=== PATIENT | female | born 1960 | race Hispanic/Latino ===

== ENCOUNTER 2021-07-21 23:08 | Observation (INO) | payer BC ==
[~2021-07-21] VITALS: Ht 152.4 cm; Wt 49.0 kg
[~2021-07-21 23:08] MED LIST: CYAN10007 IM; FAMO20TA8 PO; LEVO500T90 PO; ONDA-105 PO; SUCR1TAB PO
[2021-07-21 23:48] LABS: APPEARANCE,URINE Clear (CLEAR); BILIRUBIN,URINE Negative (NEGATIVE); COLOR,URINE Yellow (YELLOW); GLUCOSE, URINE (UA) Negative (NEGATIVE); KETONES,URINE Negative (NEGATIVE); LEUKOCYTE ESTERASE ,URINE Negative (NEGATIVE); NITRATE,URINE Negative (NEGATIVE); OCCULT BLOOD,URINE Negative (NEGATIVE); PROTEIN,URINE Negative (NEGATIVE); UROBILINOGEN,URINE 0.2 mg/dL (0.2-1.0)
[2021-07-21 23:49] LABS: BASOPHILS % (AUTO) 0.3 % (0.0-5.0); EOSINOPHILS % (AUTO) 0.7 % (0.0-8.0); HEMATOCRIT 36.7 % (36-48); LYMPHOCYTES % (AUTO) 6.4 % (21.0-51.0); MEAN CORPUSCULAR HEMOGLOBIN 32.5 pg (27.0-33.0); MEAN CORPUSCULAR HGB CONC 34.1 g/dL (32.0-36.0); MEAN CORPUSCULAR VOLUME 95.3 fL (79-99); MONOCYTES % (AUTO) 5.1 % (3.0-13.0); NEUTROPHILS % (AUTO) 87.2 % (40.0-77.0); PLATELET COUNT (AUTO) 144 K/uL (130-400); RED BLOOD CELL COUNT(AUTO) 3.85 MIL/uL (4.00-5.50); RED CELL DISTRIBUTION WIDTH 12.2 % (11.0-15.5); WHITE BLOOD COUNT (AUTO) 9.1 K/uL (4.8-10.8)
[2021-07-22 00:15] LABS: ALBUMIN 3.4 g/dL (3.5-5.0); BILIRUBIN,TOTAL 0.8 mg/dL (0.2-1.0); CREATININE 0.6 mg/dL (0.5-1.5); POTASSIUM 3.9 mmol/L (3.5-5.1); TOTAL PROTEIN, SERUM 7.3 g/dL (6.0-8.3)
[2021-07-22] MEDS ORDERED: PANTOPRAZOLE 40 MG/VIAL IVP ONE (00:30)
[2021-07-22] MEDS ORDERED: 0.9%NACL 1000ML 1,000 ML IV ONE (00:30)
[2021-07-22] MEDS ORDERED: ONDANSETRON 4MG INJ IVP ONE (00:30)
[2021-07-22] MEDS ORDERED: FAMOTIDINE 20MG VIAL IV ONE (00:30)
[2021-07-22] MEDS ORDERED: ONDANSETRON 4MG INJ IV PRN (02:30)
[2021-07-22] MEDS ORDERED: MORPHINE 4 MG SYG IV PRN (02:30)
[2021-07-22] MEDS: 0.9%NACL 1000ML 1,000 ML IV SCH ×2 (03:34→14:10)
[2021-07-22 03:42] VITALS: BP 138/77
[2021-07-22 03:49] LABS: INR 1.08 (0.85-1.15); PROTHROMBIN TIME 11.7 SEC (9.6-11.6)
[2021-07-22] MEDS ORDERED: folic acid PO (04:03)
[2021-07-22] MEDS ORDERED: iron PO (04:03)
[2021-07-22] MEDS ORDERED: pepto bismol PO (04:03)
[2021-07-22 07:31] VITALS: BP 120/74
[2021-07-22] MEDS: FAMOTIDINE 20MG VIAL IV SCH ×2 (08:36→20:38)
[2021-07-22] MEDS ORDERED: FAMOTIDINE 20MG VIAL IV SCH (09:00)
[2021-07-22 11:19] VITALS: BP 117/72
[2021-07-22 16:20] VITALS: BP 126/68
[2021-07-22] MEDS ORDERED: POLYETHYLENE GLYCOL 3350 17 GM POWD.PACK PO ONE (16:30)
[2021-07-22 18:35] VITALS: BP 113/73
[2021-07-22 23:37] VITALS: BP 129/77
[2021-07-23] MEDS: 0.9%NACL 1000ML 1,000 ML IV SCH (01:47)
[2021-07-23 03:25] VITALS: BP 104/68
[2021-07-23 08:00] VITALS: BP 130/86
[2021-07-23] MEDS: FAMOTIDINE 20MG VIAL IV SCH (08:25)
[2021-07-23] MEDS ORDERED: POLYETHYLENE GLYCOL 3350 17 GM POWD.PACK PO SCH (09:00)
[2021-07-23] MEDS ORDERED: POLY17PO4 PO (10:09)
[2021-07-23 11:36] VITALS: BP 135/77
[2021-07-23] MEDS ORDERED: HEPARIN 5,000 UNIT VIAL ONE (12:01)
[2021-07-23] MEDS ORDERED: HEPARIN 5,000 UNIT VIAL SQ SCH (12:30)
== END 2021-07-23 13:00 | disposition home or self-care (01) ==
LOC: EDH 23:08 → UNDOADMOB 07-22 02:01 → EDHIP 07-22 02:01 → WSH 07-22 03:35
PROVIDERS: ADMIT Internal Medicine Pulmonary Disease; ATTEND Internal Medicine Pulmonary Disease
DX: K56.609 Unspecified intestinal obstruction, unspecified as to partial versus complete obstruction (principal); Z20.822 Contact with and (suspected) exposure to COVID-19; C16.9 Malignant neoplasm of stomach, unspecified; D64.9 Anemia, unspecified; E86.9 Volume depletion, unspecified; Z85.028 Personal history of other malignant neoplasm of stomach; Z90.3 Acquired absence of stomach [part of]; Z92.21 Personal history of antineoplastic chemotherapy; Z90.49 Acquired absence of other specified parts of digestive tract; Z79.899 Other long term (current) drug therapy; Z98.890 Other specified postprocedural states
CPT/HCPCS: 36415 ×2; 74176; 80053; 81003; 83690; 84484; 85025; 85610; 85730; 86850; 86900; 86901; 87635; 87804 ×2; 96361 ×2; 96374; 96375; 96376 ×2; 99284; C9113; C9803; G0378 ×35; J1644 ×2; J2405; J3490 ×4; J7030; L0625

== ENCOUNTER 2021-12-18 23:09 | Observation (INO) | payer BC ==
[~2021-12-18] VITALS: Ht 152.4 cm; Wt 49.5 kg
[~2021-12-18 23:09] MED LIST changes: +BISM262O28 PO; -FAMO20TA8 PO; -LEVO500T90 PO; -ONDA-105 PO; +PANT40I PO; +POLY17PO4 PO; -SUCR1TAB PO; +folic acid PO; +iron PO
[2021-12-18] MEDS ORDERED: ONDANSETRON 4MG INJ IVP ONE (23:30)
[2021-12-18 23:51] LABS: BASOPHILS % (AUTO) 0.3 % (0.0-5.0); EOSINOPHILS % (AUTO) 0.5 % (0.0-8.0); HEMATOCRIT 38.6 % (36-48); LYMPHOCYTES % (AUTO) 9.6 % (21.0-51.0); MEAN CORPUSCULAR HEMOGLOBIN 32.1 pg (27.0-33.0); MEAN CORPUSCULAR HGB CONC 33.2 g/dL (32.0-36.0); MEAN CORPUSCULAR VOLUME 96.7 fL (79-99); MONOCYTES % (AUTO) 6.2 % (3.0-13.0); NEUTROPHILS % (AUTO) 83.2 % (40.0-77.0); PLATELET COUNT (AUTO) 146 K/uL (130-400); RED BLOOD CELL COUNT(AUTO) 3.99 MIL/uL (4.00-5.50); RED CELL DISTRIBUTION WIDTH 12.6 % (11.0-15.5); WHITE BLOOD COUNT (AUTO) 8.7 K/uL (4.8-10.8)
[2021-12-18 23:54] LABS: APPEARANCE,URINE CLEAR (CLEAR); BILIRUBIN,URINE NEGATIVE (NEGATIVE); COLOR,URINE YELLOW (YELLOW); GLUCOSE, URINE (UA) NEGATIVE (NEGATIVE); KETONES,URINE 5 mg/dL (NEGATIVE); LEUKOCYTE ESTERASE ,URINE SMALL (NEGATIVE); NITRATE,URINE NEGATIVE (NEGATIVE); OCCULT BLOOD,URINE NEGATIVE (NEGATIVE); PROTEIN,URINE NEGATIVE (NEGATIVE); UROBILINOGEN,URINE 0.2 mg/dL (0.2-1.0)
[2021-12-19 00:02] LABS: CARBON DIOXIDE 25 mmol/L (21-32); CHLORIDE 105 mmol/L (101-111); CREATININE 0.8 mg/dL (0.5-1.5); GLOMERULAR FILTR. RATE CALC 77 mL/min (>60); GLUCOSE,RANDOM 135 mg/dL (70-105); SODIUM SERUM 140 mmol/L (136-145); UREA NITROGEN, BLOOD 22 mg/dL (7-18)
[2021-12-19 00:10] LABS: BACTERIA,URINE None Seen /HPF (None Seen); MUCUS,URINE Few LPF (None Seen); RBC,URINE 0-1 /HPF (0-1); SQUAMOUS EPITHELIAL CELL,UR Few /HPF (0-2)
[2021-12-19 00:12] LABS: ALANINE AMINOTRANSFERASE 25 U/L (12-78); ASPARTATE AMINOTRANSFERASE 25 U/L (10-37); TOTAL PROTEIN, SERUM 8.1 g/dL (6.0-8.3)
[2021-12-19 00:14] LABS: LIPASE < 50 U/L (114-286)
[2021-12-19] MEDS ORDERED: KETOROLAC 15MG/ML VIAL (15MG/ML) IV ONE (00:30)
[2021-12-19] MEDS ORDERED: ONDANSETRON 4MG INJ IVP ONE (00:30)
[2021-12-19] MEDS ORDERED: MORPHINE 4 MG SYG IVP ONE (00:30)
[2021-12-19] MEDS ORDERED: IOHEXOL 350 MG/ML 100ML INFUS..BTL IV ONE (00:34)
[2021-12-19] MEDS ORDERED: 0.9% NACL 500ML IV.SOLN 500 ML IV ONE (01:30)
[2021-12-19] MEDS ORDERED: MORPHINE 2 MG SYG IVP PRN (01:30)
[2021-12-19] MEDS: 0.9%NACL 1000ML 1,000 ML IV SCH ×3 (01:45→17:37)
[2021-12-19] MEDS: INSULIN HUMULIN R 100 UNIT/ML 3ML SQ SCH ×4 (06:00→23:39)
[2021-12-19 08:00] VITALS: BP 117/71
[2021-12-19] MEDS: FERROUS SULFATE 325 MG TABLET.DR PO SCH (09:00)
[2021-12-19] MEDS ORDERED: CYANOCOBALAMIN (VITAMIN B-12) 1000 MCG/ML 1ML VIAL IM SCH (09:00)
[2021-12-19] MEDS: POLYETHYLENE GLYCOL 3350 17 GM POWD.PACK PO SCH (09:00)
[2021-12-19] MEDS: CEFTRIAXONE 2GM VIAL IVP SCH (10:16)
[2021-12-19] MEDS: ENOXAPARIN SODIUM 30 MG/0.3 ML SQ SCH (10:18)
[2021-12-19] MEDS: PANTOPRAZOLE 40 MG/VIAL IV SCH (10:18)
[2021-12-19 12:00] VITALS: BP 119/73
[2021-12-19 16:00] VITALS: BP 124/72
[2021-12-19 20:34] VITALS: BP 121/73
[2021-12-19] MEDS: LACTATED RINGERS 1000ML 1,000 ML IV SCH (22:43)
[2021-12-20] MEDS ORDERED: DEXTROSE 50%-WATER 50 ML DISP.SYRIN IV PRN
[2021-12-20 00:33] VITALS: BP 118/70
[2021-12-20] MEDS ORDERED: DEXTROSE 5 % AND 0.9 % NACL 1,000 ML IV SCH (01:00)
[2021-12-20] MEDS ORDERED: GLUCAGON 1MG KIT 1 MG ML IM PRN ×2 (01:00)
[2021-12-20 04:08] VITALS: BP 145/78
[2021-12-20] MEDS: INSULIN HUMULIN R 100 UNIT/ML 3ML SQ SCH ×3 (05:28→17:59)
[2021-12-20 05:30] LABS: BASOPHILS % (AUTO) 0.4 % (0.0-5.0); EOSINOPHILS % (AUTO) 4.9 % (0.0-8.0); HEMATOCRIT 27.7 % (36-48); LYMPHOCYTES % (AUTO) 20.8 % (21.0-51.0); MEAN CORPUSCULAR HEMOGLOBIN 32.1 pg (27.0-33.0); MEAN CORPUSCULAR HGB CONC 33.6 g/dL (32.0-36.0); MEAN CORPUSCULAR VOLUME 95.5 fL (79-99); MONOCYTES % (AUTO) 10.6 % (3.0-13.0); NEUTROPHILS % (AUTO) 63.3 % (40.0-77.0); PLATELET COUNT (AUTO) 103 K/uL (130-400); RED CELL DISTRIBUTION WIDTH 12.3 % (11.0-15.5); WHITE BLOOD COUNT (AUTO) 2.3 K/uL (4.8-10.8)
[2021-12-20 05:47] LABS: ALBUMIN 2.5 g/dL (3.5-5.0); CREATININE 0.6 mg/dL (0.5-1.5); MAGNESIUM 1.6 mg/dL (1.80-2.40); PHOSPHORUS 3.9 mg/dL (2.5-4.9); POTASSIUM 3.3 mmol/L (3.5-5.1); TOTAL PROTEIN, SERUM 5.4 g/dL (6.0-8.3)
[2021-12-20 05:50] LABS: EOSINOPHILS % (MANUAL) 4 % (1-6); LYMPHOCYTES % (MANUAL) 28 % (22-44); MAN.DIFF COMMENT-IMPRESSION MANUAL DIFFERENTIAL; MONOCYTES % (MANUAL) 8 % (2-9); PLATELET MORPHOLOGY COMMENT ADEQUATE; SEGMENTED NEUTROPHILS % 60 % (40-70)
[2021-12-20 07:34] VITALS: BP 131/67
[2021-12-20] MEDS: CEFTRIAXONE 2GM VIAL IVP SCH (10:02)
[2021-12-20] MEDS: FERROUS SULFATE 325 MG TABLET.DR PO SCH (10:02)
[2021-12-20] MEDS: POLYETHYLENE GLYCOL 3350 17 GM POWD.PACK PO SCH (10:03)
[2021-12-20] MEDS: ENOXAPARIN SODIUM 30 MG/0.3 ML SQ SCH (10:03)
[2021-12-20] MEDS: PANTOPRAZOLE 40 MG/VIAL IV SCH ×2 (10:03→15:29)
[2021-12-20] MEDS: LACTATED RINGERS 1000ML 1,000 ML IV SCH (10:05)
[2021-12-20 12:37] VITALS: BP 157/84
[2021-12-20] MEDS ORDERED: POTASSIUM CHLORIDE 20MEQ/100ML 100 ML IV PRN (13:30)
[2021-12-20] MEDS ORDERED: LIDOCAINE HCL-MPF 1% 2ML VIAL IV PRN (13:30)
[2021-12-20] MEDS ORDERED: MAGNESIUM 2GM PREMIX 50ML 50 ML IV PRN (13:30)
[2021-12-20] MEDS ORDERED: POTASSIUM CHLORIDE 10% ELIXIR 20 MEQ/15 ML UDCUP PO PRN (13:30)
[2021-12-20] MEDS: KCL 20 MEQ ERTAB PO PRN ×2 (15:33→18:05)
[2021-12-20 15:59] VITALS: BP 142/77
[2021-12-20] MEDS: METOCLOPRAMIDE 10 MG TABLET PO SCH (16:38)
[2021-12-20 20:00] VITALS: BP 145/77
[2021-12-21] VITALS: BP 120/72
[2021-12-21] MEDS: LACTATED RINGERS 1000ML 1,000 ML IV SCH (01:16)
[2021-12-21 04:00] VITALS: BP 122/73
[2021-12-21 05:21] LABS: BASOPHILS % (AUTO) 0.4 % (0.0-5.0); EOSINOPHILS % (AUTO) 3.5 % (0.0-8.0); HEMATOCRIT 28.9 % (36-48); LYMPHOCYTES % (AUTO) 22.8 % (21.0-51.0); MEAN CORPUSCULAR HEMOGLOBIN 32.7 pg (27.0-33.0); MEAN CORPUSCULAR HGB CONC 34.9 g/dL (32.0-36.0); MEAN CORPUSCULAR VOLUME 93.5 fL (79-99); MONOCYTES % (AUTO) 13.1 % (3.0-13.0); NEUTROPHILS % (AUTO) 59.8 % (40.0-77.0); PLATELET COUNT (AUTO) 128 K/uL (130-400); RED BLOOD CELL COUNT(AUTO) 3.09 MIL/uL (4.00-5.50); RED CELL DISTRIBUTION WIDTH 12.5 % (11.0-15.5); WHITE BLOOD COUNT (AUTO) 2.6 K/uL (4.8-10.8)
[2021-12-21 05:42] LABS: ALBUMIN 2.7 g/dL (3.5-5.0); CREATININE 0.6 mg/dL (0.5-1.5); POTASSIUM 4.3 mmol/L (3.5-5.1)
[2021-12-21] MEDS: INSULIN HUMULIN R 100 UNIT/ML 3ML SQ SCH ×2 (06:00)
[2021-12-21 06:18] LABS: EOSINOPHILS % (MANUAL) 2 % (1-6); LYMPHOCYTES % (MANUAL) 15 % (22-44); MONOCYTES % (MANUAL) 12 % (2-9); SEGMENTED NEUTROPHILS % 71 % (40-70)
[2021-12-21 06:19] LABS: MAN.DIFF COMMENT-IMPRESSION MANUAL DIF; PLATELET MORPHOLOGY COMMENT SLIGHTLY DECREASED
[2021-12-21] MEDS: METOCLOPRAMIDE 10 MG TABLET PO SCH ×2 (06:28→11:12)
[2021-12-21 08:00] VITALS: BP 134/77
[2021-12-21] MEDS: PANTOPRAZOLE 40 MG/VIAL IV SCH (09:13)
[2021-12-21] MEDS: CEFTRIAXONE 2GM VIAL IVP SCH (09:13)
[2021-12-21] MEDS: POLYETHYLENE GLYCOL 3350 17 GM POWD.PACK PO SCH (09:13)
[2021-12-21] MEDS: ENOXAPARIN SODIUM 30 MG/0.3 ML SQ SCH (09:13)
[2021-12-21] MEDS: FERROUS SULFATE 325 MG TABLET.DR PO SCH (09:13)
== END 2021-12-21 16:25 | disposition home or self-care (01) ==
LOC: EDH 23:09 → EDHIP 12-19 01:27 → 3BH 12-19 08:27
PROVIDERS: ADMIT Internal Medicine Pulmonary Disease; ATTEND Internal Medicine Pulmonary Disease
DX: K56.609 Unspecified intestinal obstruction, unspecified as to partial versus complete obstruction (principal); E11.65 Type 2 diabetes mellitus with hyperglycemia; E87.8 Other disorders of electrolyte and fluid balance, not elsewhere classified; Z85.028 Personal history of other malignant neoplasm of stomach; D64.9 Anemia, unspecified; E86.0 Dehydration; E86.9 Volume depletion, unspecified; D70.9 Neutropenia, unspecified; K44.9 Diaphragmatic hernia without obstruction or gangrene; M47.815 Spondylosis without myelopathy or radiculopathy, thoracolumbar region; Z53.20 Procedure and treatment not carried out because of patient's decision for unspecified reasons; Z85.01 Personal history of malignant neoplasm of esophagus; Z90.3 Acquired absence of stomach [part of]; Z92.21 Personal history of antineoplastic chemotherapy; Z92.3 Personal history of irradiation; Z79.899 Other long term (current) drug therapy
CPT/HCPCS: 96374; 99285; 84484; 80053 ×3; 83690; 85025 ×3; 83605; 81001; 36415 ×3; 71045; 93005; 96372 ×3; 96361 ×3; 96375 ×2; 87088; 82948 ×11; 74177; 96376 ×2; 83735 ×2; 84100; J2405; G0378 ×61; J7120 ×3; J7070; J0696 ×3; J1650 ×3; J3420; C9113 ×4; Q9967; J7042; J3475